=== PATIENT | male | born 1980 | race Caucasian/White ===

== ENCOUNTER 2023-03-04 19:05 | Emergency (ER) | payer SELFPAY ==
[2023-03-04] MEDS ORDERED: Ibuprofen 600 MG Tab PO ONE (19:28)
== END 2023-03-04 21:00 | disposition home or self-care (01) ==
LOC: MW.ED 19:05
DX: S60.811A Abrasion of right wrist, initial encounter (principal); S79.912A Unspecified injury of left hip, initial encounter; W22.8XXA Striking against or struck by other objects, initial encounter
CPT/HCPCS: 73100; 73502; 99283; A9270

== ENCOUNTER 2023-06-10 14:31 | Emergency (ER) | payer SELFPAY ==
[2023-06-10] MEDS ORDERED: Diphtheria,Pertussis(Acell),Tetanus Vaccine 0.5 ML Syringe IM ONE (15:38)
[2023-06-10] MEDS ORDERED: Lidocaine 1% 5 ML VIAL INJECT ONE (15:39)
[2023-06-10] MEDS ORDERED: Lidocaine 1% 5 ML VIAL ONE (15:42)
== END 2023-06-10 16:42 | disposition home or self-care (01) ==
LOC: MW.ED 14:31
DX: S61.215A Laceration without foreign body of left ring finger without damage to nail, initial encounter (principal); W23.0XXA Caught, crushed, jammed, or pinched between moving objects, initial encounter
CPT/HCPCS: 12002; 73130-26-LT; 73130-LT; 90471; 90715; 99283; 99283-25; J3490